=== PATIENT | male | born 1945 | race Caucasian/White ===

== ENCOUNTER 2016-08-03 10:11 | Emergency (ER) | payer OTHER ==
[~2016-08-03] VITALS: Ht 154.9 cm; Wt 97.2 kg
[2016-08-03 11:14] LABS: HEMATOCRIT 46.1 % (38.0-50.0); MCH 29.7 PG (29.0-34.0); MCHC 33.2 G/DL (30.0-36.0); MCV 89.3 FL (86-99); MEAN PLAT.VOLUME 10.6 uM^3 (9.0-12.4); PLATELET COUNT 257 K/uL (156-360); RBC DIS.WIDTH-CV 13.8 % (11.8-14.6); RBC DIS.WIDTH-SD 45.7 % (39-53); RED BLOOD COUNT 5.16 M/uL (4.00-5.50); WHITE BLOOD COUNT 11.2 K/uL (4.1-10.2)
[2016-08-03 11:28] LABS: CHLORIDE 108 mEq/L (99-109); POTASSIUM 4.2 mEq/L (3.7-5.4); SODIUM 142 mEq/L (136-147)
[2016-08-03 11:30] LABS: GLUCOSE 207 mg/dL (70-99)
[2016-08-03 11:32] LABS: ANION GAP 11 MEQ/L (2-14)
[2016-08-03 11:35] LABS: UREA NITROGEN (BUN) 15 mg/dL (9-23)
[2016-08-03 11:36] LABS: GFR ESTIMATE (CALCULATED) > 59 mL/min/
[2016-08-03 11:50] LABS: ADD MIUA? NO; BILIRUBIN NEGATIVE; BLOOD NEGATIVE; COLOR YELLOW ((YELLOW)); GLUCOSE (STRIP) NEGATIVE; KETONES 5; LEUKOCYTES NEGATIVE; NITRITE NEGATIVE; PROTEIN (STRIP) NEGATIVE; SPECIFIC GRAVITY 1.019 (1.000-1.030); UCUL ADDED? NO; UROBILINOGEN 0.2 MG/DL (0.2-1.0)
[2016-08-03 14:39] LABS: TOTAL BILIRUBIN 0.4 mg/dL (0.0-1.0)
[2016-08-03 14:40] LABS: ALKALINE PHOSPHATASE 81 IU/L (3-129)
[2016-08-03 14:41] LABS: PROTHROMBIN TIME 10.5 (9.2-11.2); PTT 28.9 (25-32)
[2016-08-03 14:43] LABS: DIRECT BILIRUBIN 0.2 mg/dL (0.0-0.3)
[2016-08-03 17:50] VITALS: BP 162/75
== END 2016-08-03 17:51 | disposition home or self-care (01) ==
LOC: EME 10:11
DX: S39.011A Strain of muscle, fascia and tendon of abdomen, initial encounter (principal); R31.9 Hematuria, unspecified; I10 Essential (primary) hypertension; E11.9 Type 2 diabetes mellitus without complications; E78.5 Hyperlipidemia, unspecified; Z86.73 Personal history of transient ischemic attack (TIA), and cerebral infarction without residual deficits; Z95.5 Presence of coronary angioplasty implant and graft; F17.200 Nicotine dependence, unspecified, uncomplicated; Z79.02 Long term (current) use of antithrombotics/antiplatelets
CPT/HCPCS: 74176; 80048; 80076; 81003; 85027; 85610; 85730; 99281; 99284

== ENCOUNTER → 2016-09-08 | Outpatient (CLI) | payer OTHER | END | disposition home or self-care (01) | LOC: CDC 08:54 | DX: N20.0 Calculus of kidney (principal); R94.31 Abnormal electrocardiogram [ECG] [EKG] | CPT/HCPCS: 93000 ==